=== PATIENT | female | born 1935 | race Caucasian/White ===

== ENCOUNTER 2020-04-23 22:04 | Inpatient (IN) | payer MEDICARE, BC ==
[~2020-04-23] VITALS: Ht 162.6 cm; Wt 65.9 kg
[~2020-04-23 22:04] MED LIST: AMLO2.5T5 PO; ASPI-1053 PO; CALC-1051 PO; DOCU-148 PO; EXEM25TA5 PO; LOSA50TA64 PO; MULT-1085 PO; POTA25TA8 PO
--- NOTE | 2020-04-23 22:33 | NUR ---
LABS DRAWN, BLOOD CULTURES 91ST SET ) DRAWN, PIV PLACED. PT DOES HAVE PORT A CATH TO RIGHT CHEST (REPORTS IT WAS ACCESSED LAST TIME SHE WAS HERE). NO BP/LAB DRAW TO LEFT ARM.
[2020-04-23] MEDS ORDERED: ondansetron/PF 4mg/2ml inj IV ONE (22:40)
[2020-04-23] MEDS ORDERED: morphine 10mg/ml inj. IV ONE (22:40)
[2020-04-23 22:43] LABS: BASOPHILS % (AUTO) 0.7 % (0-1); EOSINOPHILS % (AUTO) 0.1 % (0-6); HEMATOCRIT 40.2 % (35.0-45.0); HEMOGLOBIN 13.4 g/dl (12.0-16.0); LYMPHOCYTES # (AUTO) 0.6 X10'3 (1.1-4.8); LYMPHOCYTES % (AUTO) 10.7 % (21-51); MEAN CORPUSCULAR HEMOGLOBIN 30.6 PG (27.0-31.0); MEAN CORPUSCULAR HGB CONC 33.3 g/dL (33.0-36.5); MEAN CORPUSCULAR VOLUME 91.9 FL (78-98); MEAN PLATELET VOLUME 10.2 FL (7.4-10.4); MONOCYTES % (AUTO) 18.9 % (2-12); NEUTROPHILS # (AUTO) 3.7 X10'3 (1.8-7.7); NEUTROPHILS % (AUTO) 69.6 % (42-75); PLATELET COUNT 185 X10'3 (140-440); RED BLOOD COUNT 4.37 X10'6 (4.20-5.60); RED CELL DISTRIBUTION WIDTH 14.6 % (11.5-14.5); WHITE BLOOD COUNT 5.4 X10'3 (4.5-11.0)
[2020-04-23 22:55] LABS: ALANINE AMINOTRANSFERASE 29 U/L (12-78); ALBUMIN 3.3 G/DL (3.4-5.0); ALKALINE PHOSPHATASE 104 IU/L (46-116); ANION GAP 10 (8-16); ASPARTATE AMINO TRANSFERASE 34 U/L (10-37); BILIRUBIN,TOTAL 0.6 MG/DL (0.1-1.0); BLOOD UREA NITROGEN 17 MG/DL (7-18); BUN/CREATININE RATIO 17.7 (6.6-38.0); CALCIUM 8.3 MG/DL (8.5-10.1); CHLORIDE 98 MMOL/L (99-107); CREATININE 0.96 MG/DL (0.40-0.90); GLUCOSE 154 MG/DL (70-104); LIPASE 66 U/L (73-393); POTASSIUM 3.2 MMOL/L (3.5-5.1); SODIUM 136 MMOL/L (135-145); TOTAL PROTEIN 6.6 G/DL (6.4-8.2); eGFR 55 ML/MIN
[2020-04-23 23:38] LABS: TOTAL CELLS COUNTED 100
[2020-04-23 23:39] LABS: LARGE PLATELETS FEW; PLATELET ESTIMATE NORMAL
--- NOTE | 2020-04-23 23:39 | NUR ---
dr. worley talking with pt about results of CT and that she has SBO. Pt given option to have an NG placed and requests to wait until her symptoms are severe and Dr. Worley ok with this plan. Pt also does not want a straight cath. ok with waiting until Pt can void natrually to collect urine. Med Rec completed. Pt just given MSIV and zofran. bp 169/103, otherwise vss.
[2020-04-23 23:43] LABS: ELLIPTOCYTES FEW; POLYCHROMASIA FEW
[2020-04-23 23:45] LABS: POIKILOCYTOSIS 1+
[2020-04-23] MEDS ORDERED: FAMO20TA8 PO (23:55)
[2020-04-23] MEDS ORDERED: MAGN400T28 PO (23:55)
[2020-04-23] MEDS ORDERED: MORP100S12 PO (23:56)
[2020-04-24] MEDS ORDERED: mag hydrox/Alum hydrox/simeth 30ml oral suspension PO PRN (01:15)
[2020-04-24] MEDS ORDERED: magnesium hydroxide 30ml (MOM) UD suspension PO PRN (01:15)
[2020-04-24] MEDS ORDERED: ondansetron/PF 4mg/2ml inj IV PRN (01:15)
[2020-04-24] MEDS ORDERED: acetaminophen 325mg tablet PO PRN (01:15)
[2020-04-24] MEDS: normal saline 1000ml 1,000 ML IV SCH ×3 (01:52→21:15)
--- NOTE | 2020-04-24 01:53 | NUR ---
pt updated she wilol be admit hold in er through the night. Pt given blanket, anti nausea meds, denies need for pain meds,current vss. Will get a hospital bed for her.
--- NOTE | 2020-04-24 03:58 | NUR ---
pt sleeping, lying on her back with blankets covering to her shoulders. Awaiting ipa.
--- NOTE | 2020-04-24 04:34 | NUR ---
placed on hospital bed
--- NOTE | 2020-04-24 04:47 | NUR ---
pt sat up at edge of bed and was nauseaus then had emesis 100 cc's watery dark green. Up to BSC independantly with sba. Pt voiding 200 cc's dark yellow urine, sample collected for UA. Dr. Gary updated, verbal received to increased zofran to 8 mg q6hr. 1st dose ok now. Pt did have dose of 4 mg 3.5 hr ago.
[2020-04-24 04:59] LABS: CLARITY,URINE CLEAR (Clear); COLOR,URINE YELLOW (Yellow); GLUCOSE, URINE NEGATIVE (Neg); KETONES,URINE 15 mg/dl (Neg); LEUKOCYTE ESTERASE ,URINE NEGATIVE (Neg); NITRITES, URINE NEGATIVE (Neg); OCCULT BLOOD,URINE TRACE-INTACT (Neg); PH,URINE 5.5 (4.8-8.0); PROTEIN,URINE TRACE mg/dl (Neg); UROBILINOGEN,URINE 0.2 E.U/dL (0.2-1.0)
[2020-04-24 05:02] LABS: UA COLLECTION TYPE VOIDED
[2020-04-24 05:22] LABS: BACTERIA,URINE FEW /HPF (Neg); RBC,URINE 0-2 /HPF (0-2); SQUAMOUS EPITHELIAL CELL,UR FEW /LPF (FEW); WBC,URINE 0-4 /HPF (0-4)
[2020-04-24 05:23] LABS: HYALINE CASTS 0-3 /LPF (NEGATIVE)
--- NOTE | 2020-04-24 07:00 | NUR ---
PT RESTING WITH EYES CLOSED, EFFORTLESS RESPIRATIONS OBSERVED.
[2020-04-24] MEDS: aspirin 81mg tab.chew PO SCH (08:39)
[2020-04-24] MEDS: losartan 50mg tablet PO SCH (08:39)
[2020-04-24] MEDS: famotidine 20mg tablet PO SCH (08:39)
[2020-04-24] MEDS: amLODIPine 2.5mg tablet PO SCH (08:39)
[2020-04-24] MEDS: heparin, porcine 5000 units/ml vial SQ SCH ×2 (08:41→20:13)
--- NOTE | 2020-04-24 08:56 | NUR ---
PTS DAUGHTER TORIBIO CALLED CHECKING ON PT. DAUGHTER WAS INQUIRING IF PT COULD BE SET UP WITH HOSPICE WHEN DC DAUGHTER CONCERNED PT HAVING HELP/SERVICES AT HOME. PT LEFT CELL NUMBER .
--- NOTE | 2020-04-24 09:15 | NUR ---
breaking primary RN, pt is supine in bed, eyes closed, appears to be alseep, regular breathing observed
[2020-04-24] MEDS: morphine 2 MG/ML inj. syringe IV PRN ×4 (10:47→23:48)
--- NOTE | 2020-04-24 12:04 | NUR ---
Pt resting comfortably in bed, no distress noted, no needs at this time
[2020-04-24] MEDS: ondansetron/PF 4mg/2ml inj IV PRN (15:53)
--- NOTE | 2020-04-24 18:50 | NUR ---
Called ER and got report from Ashleigh BARBOZA . Patient to follow shortly.
[2020-04-24 19:00] VITALS: BP 147/101
--- NOTE | 2020-04-24 19:00 | NUR ---
Patient arrived to floor at 1900. Transferred over to surgical bed, and Vs initiated. Patient in no distress at this time.
[2020-04-24] MEDS ORDERED: magnesium 4gm in 100ml NS 100 ML IV PRN (20:00)
[2020-04-24 20:05] VITALS: BP 147/101
[2020-04-24] MEDS: K and/or MAG REPLACEMENT MC SCH (23:38)
[2020-04-24] MEDS: potassium Cl 40MEQ/1/2NS 520ml 520 ML IV PRN (23:40)
[2020-04-25] VITALS: BP 151/53
--- NOTE | 2020-04-25 02:27 | NUR ---
Pt. c/o pain from potassium infusion. New order obtained for permission to use patients port a cath.
[2020-04-25] MEDS: morphine 2 MG/ML inj. syringe IV PRN ×4 (02:42→22:49)
[2020-04-25] MEDS: ondansetron/PF 4mg/2ml inj IV PRN ×2 (04:34→18:55)
--- NOTE | 2020-04-25 06:43 | NUR ---
Problems reprioritized. Patient report given, questions answered & plan of care reviewed with Vandana BARBOZA.
[2020-04-25] MEDS: normal saline 1000ml 1,000 ML IV SCH ×2 (07:15→17:15)
[2020-04-25 08:00] VITALS: BP 134/65
[2020-04-25] MEDS: K and/or MAG REPLACEMENT MC SCH ×2 (08:00→20:00)
[2020-04-25] MEDS: aspirin 81mg tab.chew PO SCH (10:18)
[2020-04-25] MEDS: famotidine 20mg tablet PO SCH (10:18)
[2020-04-25] MEDS: amLODIPine 2.5mg tablet PO SCH (10:19)
[2020-04-25] MEDS: losartan 50mg tablet PO SCH (10:25)
[2020-04-25] MEDS: heparin, porcine 5000 units/ml vial SQ SCH ×2 (10:29→20:47)
[2020-04-25 11:00] VITALS: BP 150/60
--- NOTE | 2020-04-25 11:26 | NUR ---
Malnutrition consult: Pt reports 34 or more lb wt loss with decreased appetite per malnutrition risk screen with RN. Pt with scaled wt hx of 68.1 kg from May-February 2020, current documented scaled wt is 65.91 kg. This is non-significant wt loss of 3% (-2.2 kg) in two months. Pt on a clear liquid diet documented with 0% PO intake first meal. Pt admit with recurrent SBO with abdominal pain and N/V on presentation, no emesis since receiving Zofran per physical assessment. Pt with no documented significant decrease in muscle strength or edema. Current BMI is appropriate. Pt currently lacks a minimum of two criteria for malnutrition, though is a high risk for becoming malnourished given h/o metastatic ovarian cancer and a neuroendocrine tumor. Patient's daughter agreeable for hospice care per notes. Will continue to follow closely and monitor qualifying criteria for malnutrition and need for nutrition intervention. Addendum: 04/25/20 at [address] Amended: Links added.
[2020-04-25] MEDS ORDERED: bisacodyl 5mg tablet.DR PO PRN (11:30)
[2020-04-25 11:57] LABS: BASOPHILS % (AUTO) 0.6 % (0-1); EOSINOPHILS % (AUTO) 0.1 % (0-6); HEMATOCRIT 38.1 % (35.0-45.0); HEMOGLOBIN 12.7 g/dl (12.0-16.0); LYMPHOCYTES # (AUTO) 0.9 X10'3 (1.1-4.8); LYMPHOCYTES % (AUTO) 15.1 % (21-51); MEAN CORPUSCULAR HEMOGLOBIN 30.8 PG (27.0-31.0); MEAN CORPUSCULAR HGB CONC 33.3 g/dL (33.0-36.5); MEAN CORPUSCULAR VOLUME 92.6 FL (78-98); MEAN PLATELET VOLUME 10.7 FL (7.4-10.4); MONOCYTES # (AUTO) 0.8 X10'3 (0-0.9); MONOCYTES % (AUTO) 13.1 % (2-12); NEUTROPHILS # (AUTO) 4.1 X10'3 (1.8-7.7); NEUTROPHILS % (AUTO) 71.1 % (42-75); PLATELET COUNT 173 X10'3 (140-440); RED BLOOD COUNT 4.12 X10'6 (4.20-5.60); RED CELL DISTRIBUTION WIDTH 14.9 % (11.5-14.5); WHITE BLOOD COUNT 5.8 X10'3 (4.5-11.0)
[2020-04-25 12:27] LABS: ALANINE AMINOTRANSFERASE 16 U/L (12-78); ALBUMIN 2.4 G/DL (3.4-5.0); ALBUMIN/GLOBULIN RATIO 0.8 (1.1-1.5); ALKALINE PHOSPHATASE 76 IU/L (46-116); ANION GAP -2 (8-16); ASPARTATE AMINO TRANSFERASE 24 U/L (10-37); BILIRUBIN,TOTAL 0.4 MG/DL (0.1-1.0); BLOOD UREA NITROGEN 18 MG/DL (7-18); BUN/CREATININE RATIO 21.7 (6.6-38.0); CALCIUM 7.9 MG/DL (8.5-10.1); CHLORIDE 105 MMOL/L (99-107); CREATININE 0.83 MG/DL (0.40-0.90); GLUCOSE 98 MG/DL (70-104); SODIUM 132 MMOL/L (135-145); TOTAL CARBON DIOXIDE 28.7 MMOL/L (24-32); TOTAL PROTEIN 5.4 G/DL (6.4-8.2); eGFR 65 ML/MIN
[2020-04-25 12:29] LABS: LARGE PLATELETS FEW; PLATELET ESTIMATE NORMAL
[2020-04-25 12:30] LABS: BURR CELLS FEW; ELLIPTOCYTES FEW; SCHISTOCYTES FEW
--- NOTE | 2020-04-25 13:52 | NUR ---
PAGER ID: [phone] MESSAGE: [place] [id number] Did you want miralax today or at HS? Order says HS but is showing up for now. Vandana [id number]
--- NOTE | 2020-04-25 13:54 | NUR ---
called. Ok to give one miralax does now and then continue with miralax at bedtime starting tomorrow.
[2020-04-25] MEDS: polyethylene glycol 3350 17gm powd pack PO SCH ×2 (14:01→20:45)
--- NOTE | 2020-04-25 18:38 | NUR ---
Gave report to Lara Ashford RN.
--- NOTE | 2020-04-25 18:40 | NUR ---
Patient in room [facility]. I have received report from TAMRA Ross and had the opportunity to ask questions and assume patient care.
[2020-04-25 20:00] VITALS: BP 159/83
[2020-04-25] MEDS: docusate sod 100mg capsule PO SCH (20:47)
[2020-04-26] VITALS: BP 143/89
[2020-04-26] MEDS: normal saline 1000ml 1,000 ML IV SCH ×4 (03:15→23:15)
--- NOTE | 2020-04-26 06:34 | NUR ---
Problems reprioritized. Patient report given, questions answered & plan of care reviewed with TAMRA Sibley.
--- NOTE | 2020-04-26 06:43 | NUR ---
Patient in room [facility]. I have received report from TAMRA Bermudez and had the opportunity to ask questions and assume patient care.
[2020-04-26] MEDS: losartan 50mg tablet PO SCH (07:43)
[2020-04-26] MEDS: docusate sod 100mg capsule PO SCH ×2 (07:44→19:29)
[2020-04-26] MEDS: amLODIPine 2.5mg tablet PO SCH (07:44)
[2020-04-26] MEDS: famotidine 20mg tablet PO SCH (07:44)
[2020-04-26] MEDS: heparin, porcine 5000 units/ml vial SQ SCH ×2 (07:45→19:29)
[2020-04-26] MEDS: morphine 2 MG/ML inj. syringe IV PRN ×3 (07:55→22:54)
[2020-04-26] MEDS: ondansetron/PF 4mg/2ml inj IV PRN ×2 (07:55→18:53)
[2020-04-26 08:00] VITALS: BP 177/85
[2020-04-26] MEDS: K and/or MAG REPLACEMENT MC SCH ×2 (08:00→20:00)
[2020-04-26 11:14] LABS: BASOPHILS % (AUTO) 0.3 % (0-1); EOSINOPHILS % (AUTO) 0 % (0-6); HEMATOCRIT 39.3 % (35.0-45.0); HEMOGLOBIN 13.2 g/dl (12.0-16.0); LYMPHOCYTES # (AUTO) 0.4 X10'3 (1.1-4.8); LYMPHOCYTES % (AUTO) 8.2 % (21-51); MEAN CORPUSCULAR HEMOGLOBIN 30.9 PG (27.0-31.0); MEAN CORPUSCULAR HGB CONC 33.7 g/dL (33.0-36.5); MEAN CORPUSCULAR VOLUME 91.7 FL (78-98); MONOCYTES # (AUTO) 0.7 X10'3 (0-0.9); MONOCYTES % (AUTO) 13.5 % (2-12); PLATELET COUNT 178 X10'3 (140-440); RED BLOOD COUNT 4.29 X10'6 (4.20-5.60); WHITE BLOOD COUNT 5.2 X10'3 (4.5-11.0)
[2020-04-26 11:27] LABS: ALANINE AMINOTRANSFERASE 12 U/L (12-78); ALBUMIN 2.3 G/DL (3.4-5.0); ALBUMIN/GLOBULIN RATIO 0.7 (1.1-1.5); ALKALINE PHOSPHATASE 74 IU/L (46-116); ANION GAP 8 (8-16); BILIRUBIN,TOTAL 0.6 MG/DL (0.1-1.0); BLOOD UREA NITROGEN 11 MG/DL (7-18); BUN/CREATININE RATIO 17.7 (6.6-38.0); CALCIUM 7.4 MG/DL (8.5-10.1); CHLORIDE 100 MMOL/L (99-107); CREATININE 0.62 MG/DL (0.40-0.90); GLUCOSE 104 MG/DL (70-104); SODIUM 135 MMOL/L (135-145); TOTAL CARBON DIOXIDE 27.4 MMOL/L (24-32); TOTAL PROTEIN 5.6 G/DL (6.4-8.2); eGFR > 90 ML/MIN
[2020-04-26 11:28] LABS: ASPARTATE AMINO TRANSFERASE 30 U/L (10-37); POTASSIUM 3.4 MMOL/L (3.5-5.1)
[2020-04-26 13:12] VITALS: BP 174/82
[2020-04-26] MEDS ORDERED: PEG 3350/Na sulf,bicarb,Cl/KCl oral sol 4 liter bottle PO ONE (14:00)
[2020-04-26] MEDS: potassium Cl 40MEQ/1/2NS 520ml 520 ML IV PRN (14:37)
[2020-04-26 18:00] VITALS: BP 194/85
--- NOTE | 2020-04-26 18:21 | NUR ---
Patient in room [facility]. I have received report from TAMRA Sibley and had the opportunity to ask questions and assume patient care.
--- NOTE | 2020-04-26 18:45 | NUR ---
Problems reprioritized. Patient report given, questions answered & plan of care reviewed with TAMRA Bermudez.
[2020-04-26 19:25] VITALS: BP 165/76
[2020-04-26] MEDS: polyethylene glycol 3350 17gm powd pack PO SCH ×2 (20:13)
--- NOTE | 2020-04-26 20:13 | NUR ---
Pt refused miralax; receiving golitely.
[2020-04-27] VITALS: BP 178/102
[2020-04-27 01:14] VITALS: BP 150/82
[2020-04-27] MEDS: normal saline 1000ml 1,000 ML IV SCH ×3 (04:07→17:03)
[2020-04-27 06:17] LABS: BASOPHILS % (AUTO) 0.2 % (0-1); EOSINOPHILS % (AUTO) 0 % (0-6); HEMATOCRIT 41.3 % (35.0-45.0); LYMPHOCYTES # (AUTO) 0.5 X10'3 (1.1-4.8); MEAN CORPUSCULAR HEMOGLOBIN 30.7 PG (27.0-31.0); MEAN CORPUSCULAR HGB CONC 33.8 g/dL (33.0-36.5); MEAN CORPUSCULAR VOLUME 90.9 FL (78-98); MEAN PLATELET VOLUME 10.4 FL (7.4-10.4); MONOCYTES % (AUTO) 11.6 % (2-12); NEUTROPHILS # (AUTO) 7.5 X10'3 (1.8-7.7); NEUTROPHILS % (AUTO) 83.2 % (42-75); PLATELET COUNT 178 X10'3 (140-440); RED BLOOD COUNT 4.55 X10'6 (4.20-5.60); RED CELL DISTRIBUTION WIDTH 14.4 % (11.5-14.5); WHITE BLOOD COUNT 9.1 X10'3 (4.5-11.0)
--- NOTE | 2020-04-27 06:17 | NUR ---
Problems reprioritized. Patient report given, questions answered & plan of care reviewed with TAMRA Sibley.
--- NOTE | 2020-04-27 06:33 | NUR ---
Patient in room [facility]. I have received report from TAMRA Bermudez and had the opportunity to ask questions and assume patient care.
[2020-04-27 06:41] LABS: ALANINE AMINOTRANSFERASE 14 U/L (12-78); ALBUMIN 2.5 G/DL (3.4-5.0); ALBUMIN/GLOBULIN RATIO 0.8 (1.1-1.5); ALKALINE PHOSPHATASE 79 IU/L (46-116); ANION GAP 11 (8-16); ASPARTATE AMINO TRANSFERASE 21 U/L (10-37); BILIRUBIN,TOTAL 0.8 MG/DL (0.1-1.0); BLOOD UREA NITROGEN 13 MG/DL (7-18); BUN/CREATININE RATIO 18.1 (6.6-38.0); CALCIUM 7.9 MG/DL (8.5-10.1); CHLORIDE 100 MMOL/L (99-107); CREATININE 0.72 MG/DL (0.40-0.90); GLUCOSE 127 MG/DL (70-104); POTASSIUM 3.3 MMOL/L (3.5-5.1); SODIUM 136 MMOL/L (135-145); TOTAL CARBON DIOXIDE 24.7 MMOL/L (24-32); TOTAL PROTEIN 5.8 G/DL (6.4-8.2); eGFR 77 ML/MIN
[2020-04-27] MEDS: ondansetron/PF 4mg/2ml inj IV PRN ×2 (07:36→20:19)
[2020-04-27] MEDS: morphine 2 MG/ML inj. syringe IV PRN ×3 (07:36→22:35)
[2020-04-27] MEDS: famotidine 20mg tablet PO SCH (07:45)
[2020-04-27] MEDS: amLODIPine 2.5mg tablet PO SCH (07:45)
[2020-04-27] MEDS: docusate sod 100mg capsule PO SCH ×2 (07:45→20:00)
[2020-04-27] MEDS: losartan 50mg tablet PO SCH (07:45)
[2020-04-27] MEDS: heparin, porcine 5000 units/ml vial SQ SCH ×2 (07:53→20:16)
[2020-04-27] MEDS: K and/or MAG REPLACEMENT MC SCH ×2 (08:00→20:00)
--- NOTE | 2020-04-27 13:54 | NUR ---
Initial: Pt admit with recurrent SBO with abdominal pain and N/V on presentation with h/o metastatic ovarian cancer and a neuroendocrine tumor. LBM 04/22, pt receiving routine Colace and routine Miralax held, pt refusing per RN notes. Pt received Golytely 04/26 and first dose of PRN MoM 04/27. Per MD note pt passing flatus this morning though no bowel movement. Pt on a clear liquid diet with fluctuating PO intake 0% with refusals, 25-50% and 75%, though now with an NG tube in place d/t multiple episode of vomiting per MD note. Limited nutrition interventions at this time given current diet order. Pt DNR at this time, patient's daughter agreeable for hospice care per CM notes. If unable to advance PO diet, emesis resolves, and pt does not go on hospice pt would benefit from TF to meet estimated nutrient needs since NG tube already in place. Will continue to follow closely and make recommendations as appropriate in line with patient's plan of care. Recommendations: 1) Advance to regular diet as medically indicated 2) IF TF, continuous Jevity 1.2 with goal rate of 60 mL/hr with additional 90 mL water flush Q4H; prealbumin q Thursday/; daily weights 3) Bowel care per rx 4) Scaled weights per rx Addendum: 04/27/20 at [address] Amended: Links added.
[2020-04-27] MEDS: potassium Cl 40MEQ/1/2NS 520ml 520 ML IV PRN (17:50)
[2020-04-27 18:00] VITALS: BP 147/85
--- NOTE | 2020-04-27 18:31 | NUR ---
Patient in room [facility]. I have received report from Tomeka BARBOZA and had the opportunity to ask questions and assume patient care.
--- NOTE | 2020-04-27 18:35 | NUR ---
Problems reprioritized. Patient report given, questions answered & plan of care reviewed with TAMRA Sanchez.
--- NOTE | 2020-04-27 18:50 | NUR ---
pt c/o of nausea and agreed to have NG turned back on to suction. will continue to monitor.
[2020-04-27] MEDS: polyethylene glycol 3350 17gm powd pack PO SCH ×2 (20:16→20:59)
--- NOTE | 2020-04-27 22:30 | NUR ---
mirlax given as ordered. suction turned off. pt at 2230 c/o nausea and the suction was connected back to NGT. will continue to monitor
[2020-04-28 00:36] VITALS: BP 168/89
[2020-04-28] MEDS: ondansetron/PF 4mg/2ml inj IV PRN ×2 (04:27→19:54)
[2020-04-28] MEDS: normal saline 1000ml 1,000 ML IV SCH ×2 (05:38→16:13)
--- NOTE | 2020-04-28 06:24 | NUR ---
Problems reprioritized. Patient report given, questions answered & plan of care reviewed with Leonora BARBOZA.
--- NOTE | 2020-04-28 06:29 | NUR ---
Patient in room [facility]. I have received report from TAMRA Sanchez and had the opportunity to ask questions and assume patient care.
[2020-04-28 07:00] VITALS: BP 153/60
[2020-04-28] MEDS: famotidine 20mg tablet PO SCH (08:00)
[2020-04-28] MEDS: K and/or MAG REPLACEMENT MC SCH ×2 (08:00→20:00)
[2020-04-28] MEDS: losartan 50mg tablet PO SCH (08:00)
[2020-04-28] MEDS: docusate sod 100mg capsule PO SCH ×2 (08:00→20:00)
[2020-04-28] MEDS: amLODIPine 2.5mg tablet PO SCH (08:00)
[2020-04-28] MEDS: heparin, porcine 5000 units/ml vial SQ SCH ×2 (09:09→20:01)
[2020-04-28 11:00] VITALS: BP 155/84
[2020-04-28] MEDS ORDERED: magnesium 2GM in 50ml NS 50 ML IV PRN (13:25)
[2020-04-28] MEDS ORDERED: magnesium 4gm in 100ml NS 100 ML IV PRN (13:25)
[2020-04-28] MEDS ORDERED: potassium Cl 20 mEq SR tablet PO PRN ×2 (13:25)
[2020-04-28] MEDS ORDERED: magnesium Cl slow-release 64mg tablet PO PRN (13:25)
[2020-04-28] MEDS: potassium Cl 40MEQ/1/2NS 520ml 520 ML IV PRN (16:13)
[2020-04-28 18:30] VITALS: BP 164/83
--- NOTE | 2020-04-28 18:51 | NUR ---
Problems reprioritized. Patient report given, questions answered & plan of care reviewed with TAMRA Montiel.
--- NOTE | 2020-04-28 18:52 | NUR ---
Patient in room [facility]. I have received report from JULIETA BARBOZA and had the opportunity to ask questions and assume patient care.
[2020-04-28] MEDS: polyethylene glycol 3350 17gm powd pack PO SCH ×2 (20:01→20:02)
[2020-04-29] VITALS: BP 130/77
[2020-04-29] MEDS: normal saline 1000ml 1,000 ML IV SCH ×3 (03:17→12:32)
[2020-04-29 06:04] LABS: ALANINE AMINOTRANSFERASE 14 U/L (12-78); ALBUMIN 2.2 G/DL (3.4-5.0); ALBUMIN/GLOBULIN RATIO 0.7 (1.1-1.5); ALKALINE PHOSPHATASE 81 IU/L (46-116); ANION GAP 8 (8-16); ASPARTATE AMINO TRANSFERASE 28 U/L (10-37); BILIRUBIN,TOTAL 0.7 MG/DL (0.1-1.0); BLOOD UREA NITROGEN 19 MG/DL (7-18); CALCIUM 7.3 MG/DL (8.5-10.1); CHLORIDE 102 MMOL/L (99-107); CREATININE 0.73 MG/DL (0.40-0.90); GLUCOSE 142 MG/DL (70-104); SODIUM 138 MMOL/L (135-145); TOTAL CARBON DIOXIDE 28.3 MMOL/L (24-32); TOTAL PROTEIN 5.2 G/DL (6.4-8.2); eGFR 75 ML/MIN
[2020-04-29 06:09] LABS: POTASSIUM 2.8 MMOL/L (3.5-5.1)
--- NOTE | 2020-04-29 06:24 | NUR ---
PAGED DR. APODACA AND WAS INFORMED OF CRITICAL POTASSIUM 2.8 NO NEW ORDERS MADE. PATIENT ALREADY ON REPLACEMENT PROTOCOL ORDERS.
--- NOTE | 2020-04-29 06:25 | NUR ---
Problems reprioritized. Patient report given, questions answered & plan of care reviewed with JULIETA BARBOZA.
--- NOTE | 2020-04-29 06:26 | NUR ---
Patient in room [facility]. I have received report from TAMRA Montiel and had the opportunity to ask questions and assume patient care.
[2020-04-29 06:32] LABS: BASOPHILS % (AUTO) 0.3 % (0-1); EOSINOPHILS % (AUTO) 0.1 % (0-6); HEMATOCRIT 35.8 % (35.0-45.0); LYMPHOCYTES # (AUTO) 0.5 X10'3 (1.1-4.8); LYMPHOCYTES % (AUTO) 7.3 % (21-51); MEAN CORPUSCULAR HEMOGLOBIN 30.5 PG (27.0-31.0); MEAN CORPUSCULAR HGB CONC 33.6 g/dL (33.0-36.5); MEAN CORPUSCULAR VOLUME 90.9 FL (78-98); MEAN PLATELET VOLUME 10.7 FL (7.4-10.4); MONOCYTES # (AUTO) 0.5 X10'3 (0-0.9); NEUTROPHILS # (AUTO) 6.4 X10'3 (1.8-7.7); NEUTROPHILS % (AUTO) 85.3 % (42-75); PLATELET COUNT 164 X10'3 (140-440); RED BLOOD COUNT 3.93 X10'6 (4.20-5.60); WHITE BLOOD COUNT 7.5 X10'3 (4.5-11.0)
[2020-04-29 07:00] VITALS: BP 155/75
[2020-04-29 07:41] LABS: LARGE PLATELETS FEW; PLATELET ESTIMATE NORMAL
[2020-04-29 07:42] LABS: POIKILOCYTOSIS 1+
[2020-04-29] MEDS: famotidine 20mg tablet PO SCH (08:00)
[2020-04-29] MEDS: losartan 50mg tablet PO SCH (08:00)
[2020-04-29] MEDS: K and/or MAG REPLACEMENT MC SCH ×2 (08:00→20:00)
[2020-04-29] MEDS: docusate sod 100mg capsule PO SCH ×2 (08:00→20:00)
[2020-04-29] MEDS: amLODIPine 2.5mg tablet PO SCH (08:00)
[2020-04-29] MEDS: potassium Cl 40MEQ/1/2NS 520ml 520 ML IV PRN ×3 (08:30→14:55)
[2020-04-29] MEDS: heparin, porcine 5000 units/ml vial SQ SCH ×2 (08:35→20:42)
[2020-04-29 10:30] VITALS: BP 155/78
[2020-04-29] MEDS: ondansetron/PF 4mg/2ml inj IV PRN ×2 (10:52→18:06)
--- NOTE | 2020-04-29 13:00 | NUR ---
Punctured IV bag noted during administration of second bag of IV potassium. Pharmacy notified and third bag of potassium requested to be made and sent.
--- NOTE | 2020-04-29 13:09 | NUR ---
NG DC'd at [address] Mattson's order. Pt tolerated well. Will continue to monitor.
--- NOTE | 2020-04-29 15:21 | NUR ---
Problems reprioritized. Patient report given, questions answered & plan of care reviewed with TAMRA Murillo.
--- NOTE | 2020-04-29 15:25 | NUR ---
Patient in room [facility]. I have received report from TAMRA Lea and had the opportunity to ask questions and assume patient care.
--- NOTE | 2020-04-29 18:30 | NUR ---
Problems reprioritized. Patient report given, questions answered & plan of care reviewed with TAMRA Nunn.
[2020-04-29 19:00] VITALS: BP 154/72
[2020-04-29] MEDS: polyethylene glycol 3350 17gm powd pack PO SCH (20:43)
[2020-04-30] VITALS: BP 145/84
[2020-04-30] MEDS: ondansetron/PF 4mg/2ml inj IV PRN ×2 (00:42→07:19)
[2020-04-30] MEDS: normal saline 1000ml 1,000 ML IV SCH (02:30)
[2020-04-30] MEDS: potassium Cl 40MEQ/1/2NS 520ml 520 ML IV PRN ×2 (02:40→12:07)
--- NOTE | 2020-04-30 06:20 | NUR ---
Patient in room [facility]. I have received report from Edouard BARBOZA and had the opportunity to ask questions and assume patient care.
[2020-04-30 07:00] VITALS: BP 145/81
--- NOTE | 2020-04-30 07:00 | NUR ---
Problems reprioritized. Patient report given, questions answered & plan of care reviewed with CYRIL. Addendum: 04/30/20 at 0701 by Duke Benoit RN Amended: Links added.
[2020-04-30] MEDS: amLODIPine 2.5mg tablet PO SCH (08:00)
[2020-04-30 09:12] LABS: BASOPHILS % (AUTO) 0.2 % (0-1); EOSINOPHILS % (AUTO) 0.1 % (0-6); HEMATOCRIT 34.7 % (35.0-45.0); HEMOGLOBIN 11.7 g/dl (12.0-16.0); LYMPHOCYTES # (AUTO) 0.5 X10'3 (1.1-4.8); LYMPHOCYTES % (AUTO) 6.4 % (21-51); MEAN CORPUSCULAR HEMOGLOBIN 30.7 PG (27.0-31.0); MEAN CORPUSCULAR HGB CONC 33.7 g/dL (33.0-36.5); MEAN PLATELET VOLUME 9.6 FL (7.4-10.4); MONOCYTES # (AUTO) 0.8 X10'3 (0-0.9); MONOCYTES % (AUTO) 10.3 % (2-12); NEUTROPHILS # (AUTO) 6.2 X10'3 (1.8-7.7); PLATELET COUNT 183 X10'3 (140-440); RED BLOOD COUNT 3.82 X10'6 (4.20-5.60); RED CELL DISTRIBUTION WIDTH 14.3 % (11.5-14.5); WHITE BLOOD COUNT 7.5 X10'3 (4.5-11.0)
[2020-04-30 09:23] LABS: ALANINE AMINOTRANSFERASE 10 U/L (12-78); ALBUMIN 2.2 G/DL (3.4-5.0); ALBUMIN/GLOBULIN RATIO 0.8 (1.1-1.5); ALKALINE PHOSPHATASE 69 IU/L (46-116); ANION GAP 8 (8-16); ASPARTATE AMINO TRANSFERASE 35 U/L (10-37); BILIRUBIN,TOTAL 0.5 MG/DL (0.1-1.0); BLOOD UREA NITROGEN 16 MG/DL (7-18); BUN/CREATININE RATIO 25.8 (6.6-38.0); CALCIUM 7.3 MG/DL (8.5-10.1); CHLORIDE 104 MMOL/L (99-107); CREATININE 0.62 MG/DL (0.40-0.90); GLUCOSE 118 MG/DL (70-104); POTASSIUM 3.2 MMOL/L (3.5-5.1); SODIUM 139 MMOL/L (135-145); TOTAL CARBON DIOXIDE 26.7 MMOL/L (24-32); eGFR > 90 ML/MIN
[2020-04-30] MEDS: famotidine 20mg tablet PO SCH (10:15)
[2020-04-30] MEDS: docusate sod 100mg capsule PO SCH (10:15)
[2020-04-30] MEDS: losartan 50mg tablet PO SCH (10:22)
[2020-04-30] MEDS: heparin, porcine 5000 units/ml vial SQ SCH (10:35)
[2020-04-30] MEDS ORDERED: LORazepam 2 mg/ml vial IV ONE (10:35)
[2020-04-30 11:00] VITALS: BP 107/62
[2020-04-30] MEDS: proCHLORperazine 10 MG/2 ml inj IV PRN ×2 (12:08→23:10)
--- NOTE | 2020-04-30 14:45 | NUR ---
F/u 04/30: Noted pt has been made DNR w/ comfort care. LBM 04/29. Will continue to follow. Recommendations: 1) Bowel care per rx Addendum: 04/30/20 at [address] Amended: Links added.
--- NOTE | 2020-04-30 18:28 | NUR ---
Problems reprioritized. Patient report given, questions answered & plan of care reviewed with Megan BARBOZA.
--- NOTE | 2020-04-30 18:29 | NUR ---
I have received report from Savannah BARBOZA and had the opportunity to ask questions and assume patient care.
[2020-04-30 20:00] VITALS: BP 128/83
[2020-05-01] MEDS: normal saline 1000ml 1,000 ML IV SCH (04:46)
--- NOTE | 2020-05-01 06:39 | NUR ---
Problems reprioritized. Patient report given, questions answered & plan of care reviewed with Rebel RN.
[2020-05-01 07:00] VITALS: BP 145/67
[2020-05-01] MEDS: proCHLORperazine 10 MG/2 ml inj IV PRN ×2 (07:46→23:12)
--- NOTE | 2020-05-01 12:15 | NUR ---
Sleeping comfortably at this time, no signs of pain
--- NOTE | 2020-05-01 18:26 | NUR ---
Problems reprioritized. Patient report given, questions answered & plan of care reviewed with Megan BARBOZA.
[2020-05-01 19:00] VITALS: BP 121/60
--- NOTE | 2020-05-01 21:12 | NUR ---
I have received report from Azra BARBOZA and had the opportunity to ask questions and assume patient care.
[2020-05-02] MEDS: normal saline 1000ml 1,000 ML IV SCH (02:45)
[2020-05-02] MEDS: proCHLORperazine 10 MG/2 ml inj IV PRN (05:15)
[2020-05-02 07:00] VITALS: BP 138/69
[2020-05-02 11:00] VITALS: BP 134/55
--- NOTE | 2020-05-02 11:30 | NUR ---
Patient in room [facility]. I have received report from Megan Roy RN, and had the opportunity to ask questions and assume patient care.
--- NOTE | 2020-05-02 11:41 | NUR ---
Problems reprioritized. Patient report given, questions answered & plan of care reviewed with Sydnie BARBOZA.
--- NOTE | 2020-05-02 18:15 | NUR ---
Patient report given, questions answered & plan of care reviewed with Adela Chapman RN .
--- NOTE | 2020-05-02 18:30 | NUR ---
Patient in room [facility]. I have received report from RONAK BARBOZA and had the opportunity to ask questions and assume patient care.
[2020-05-02 20:00] VITALS: BP 157/76
[2020-05-03] MEDS: normal saline 1000ml 1,000 ML IV SCH (04:40)
--- NOTE | 2020-05-03 06:10 | NUR ---
Patient in room [facility]. I have received report from Adela Chapman RN, and had the opportunity to ask questions and assume patient care.
--- NOTE | 2020-05-03 06:12 | NUR ---
Problems reprioritized. Patient report given, questions answered & plan of care reviewed with RONAK BARBOZA.
[2020-05-03 08:00] VITALS: BP 133/63
[2020-05-03] MEDS: normal saline 500ml IV soln 500 ML IV SCH (12:36)
[2020-05-03] MEDS: morphine 10mg/0.5ml (conc. morphine) oral syringe PO PRN (12:49)
--- NOTE | 2020-05-03 18:20 | NUR ---
Patient report given, questions answered & plan of care reviewed with TAMRA Montiel.
--- NOTE | 2020-05-03 18:30 | NUR ---
Patient in room [facility]. I have received report from RONAK BARBOZA and had the opportunity to ask questions and assume patient care.
[2020-05-03 20:00] VITALS: BP 143/69
--- NOTE | 2020-05-04 06:33 | NUR ---
Problems reprioritized. Patient report given, questions answered & plan of care reviewed with UMBERTO BARBOZA.
[2020-05-04 07:00] VITALS: BP 139/62
[2020-05-04] MEDS: normal saline 500ml IV soln 500 ML IV SCH (07:33)
[2020-05-04 11:43] VITALS: BP 157/76
--- NOTE | 2020-05-04 18:19 | NUR ---
Problems reprioritized. Patient report given, questions answered & plan of care reviewed with TAMRA Montiel.
--- NOTE | 2020-05-04 18:30 | NUR ---
Patient in room [facility]. I have received report from UMBERTO BARBOZA and had the opportunity to ask questions and assume patient care.
[2020-05-04 20:00] VITALS: BP 141/81
[2020-05-05] MEDS: normal saline 500ml IV soln 500 ML IV SCH (05:33)
--- NOTE | 2020-05-05 06:25 | NUR ---
Problems reprioritized. Patient report given, questions answered & plan of care reviewed with EVER BARBOZA.
--- NOTE | 2020-05-05 06:45 | NUR ---
Patient in room [facility]. I have received report from CRISTINE COLUNGA RN and had the opportunity to ask questions and assume patient care.
[2020-05-05 07:50] VITALS: BP 142/73
--- NOTE | 2020-05-05 18:27 | NUR ---
Problems reprioritized. Patient report given, questions answered & plan of care reviewed with TAMRA GORE.
--- NOTE | 2020-05-05 18:30 | NUR ---
Patient in room [facility]. I have received report from Deidre BARBOZA and had the opportunity to ask questions and assume patient care.
[2020-05-05 19:00] VITALS: BP 131/68
[2020-05-06] MEDS: normal saline 500ml IV soln 500 ML IV SCH (05:46)
--- NOTE | 2020-05-06 06:20 | NUR ---
Patient in room [facility]. I have received report from TAMRA GORE and had the opportunity to ask questions and assume patient care.
[2020-05-06 07:06] VITALS: BP 126/56
--- NOTE | 2020-05-06 14:49 | NUR ---
F/u 05/06: Pt remains DNR w/ comfort care. LBM 05/04. Will continue to follow. Recommendations: 1) Bowel care per rx Addendum: 05/06/20 at [address] Amended: Links added.
--- NOTE | 2020-05-06 18:21 | NUR ---
Problems reprioritized. Patient report given, questions answered & plan of care reviewed with TAMRA Quinn.
--- NOTE | 2020-05-06 18:31 | NUR ---
Patient in room [facility]. I have received report from Nish BARBOZA and had the opportunity to ask questions and assume patient care. Pt sitting up in the chair with her dinner tray. No signs of distress. Will continue to monitor
[2020-05-06 20:00] VITALS: BP 119/64
[2020-05-07 06:00] VITALS: BP 135/73
--- NOTE | 2020-05-07 06:15 | NUR ---
Problems reprioritized. Patient report given, questions answered & plan of care reviewed with Kathleen BARBOZA.
--- NOTE | 2020-05-07 06:37 | NUR ---
Patient in room [facility]. I have received report from Edouard BARBOZA and had the opportunity to ask questions and assume patient care.
[2020-05-07] MEDS: morphine 10mg/0.5ml (conc. morphine) oral syringe PO PRN (08:27)
[2020-05-07] MEDS: normal saline 500ml IV soln 500 ML IV SCH (08:30)
--- NOTE | 2020-05-07 18:43 | NUR ---
patient sleeping alot of shift medicated with Roxanol x1 for 6/10 pain with effect denied pain after this. Up in chair x1 poor appetite Voided 125mls. Is comfort care. Awaiting arrival of daughter from [place] on . Report given to Ras BARBOZA
--- NOTE | 2020-05-07 18:45 | NUR ---
Patient in room [facility]. I have received report from JESSICA BARBOZA and had the opportunity to ask questions and assume patient care.
[2020-05-07 20:00] VITALS: BP 156/78
[2020-05-08] MEDS: normal saline 500ml IV soln 500 ML IV SCH (04:08)
--- NOTE | 2020-05-08 06:25 | NUR ---
Problems reprioritized. Patient report given, questions answered & plan of care reviewed with JULIETA BARBOZA.
[2020-05-08 07:00] VITALS: BP 120/66
--- NOTE | 2020-05-08 07:07 | NUR ---
Patient in room [facility]. I have received report from Dinesh BARBOZA and had the opportunity to ask questions and assume patient care.
--- NOTE | 2020-05-08 18:29 | NUR ---
Problems reprioritized. Patient report given, questions answered & plan of care reviewed with Freda BARBOZA.
--- NOTE | 2020-05-08 18:30 | NUR ---
Patient in room [facility]. I have received report from Leonora BARBOZA and had the opportunity to ask questions and assume patient care.
[2020-05-08 19:00] VITALS: BP 131/68
[2020-05-09] MEDS: normal saline 500ml IV soln 500 ML IV SCH ×2 (03:07→19:47)
--- NOTE | 2020-05-09 06:37 | NUR ---
Patient in room [facility]. I have received report from TAMRA Barba and had the opportunity to ask questions and assume patient care.
--- NOTE | 2020-05-09 06:40 | NUR ---
Problems reprioritized. Patient report given, questions answered & plan of care reviewed with Leonora BARBOZA.
[2020-05-09 07:00] VITALS: BP 157/63
[2020-05-09] MEDS: LORazepam 2 mg/ml vial IV PRN ×2 (08:40→17:33)
--- NOTE | 2020-05-09 13:40 | NUR ---
Problems reprioritized. Patient report given, questions answered & plan of care reviewed with TAMRA Barone.
--- NOTE | 2020-05-09 14:00 | NUR ---
REPORT GIVEN TO JUDY
--- NOTE | 2020-05-09 14:02 | NUR ---
Pt transferred to room 4014B, with all belongings.
[2020-05-09 14:33] VITALS: BP 132/68
--- NOTE | 2020-05-09 14:49 | NUR ---
Patients daughter Lali notified patient is positive for covid. Patients family Lali and her sister are down in the lobby to see mother. I advised what room patient was in and I don't know if they are allowing visitors but she could call and find out. After getting off the phone with Lali I spoke to the ortho floor and they said they are allowing visitors for the Comfort care patients and provide N95 masks for visitor. I contacted Lali and and notified they of the above information and they would have to get further details from the unit.
[2020-05-09 22:00] VITALS: BP 134/68
[2020-05-10 09:36] VITALS: BP 164/73
[2020-05-10] MEDS: LORazepam 2 mg/ml vial IV PRN (14:30)
--- NOTE | 2020-05-10 18:22 | NUR ---
Problems reprioritized. Patient report given, questions answered & plan of care reviewed with PRUDENCE RN.
[2020-05-10] MEDS: normal saline 500ml IV soln 500 ML IV SCH (18:26)
--- NOTE | 2020-05-10 18:56 | NUR ---
Patient in room [facility] 4014. I have received report from LAUREN BARBOZA and had the opportunity to ask questions and assume patient care.
--- NOTE | 2020-05-10 20:19 | NUR ---
Problems reprioritized. Patient report given, questions answered & plan of care reviewed with SERGEY BARBOZA.
--- NOTE | 2020-05-10 20:19 | NUR ---
Patient in room [facility] 4014. I have received report from TAMRA Sheets and had the opportunity to ask questions and assume patient care.
[2020-05-10 22:00] VITALS: BP 145/68
[2020-05-11] MEDS: LORazepam 2 mg/ml vial IV PRN ×3 (02:19→23:41)
--- NOTE | 2020-05-11 06:25 | NUR ---
Problems reprioritized. Patient report given, questions answered & plan of care reviewed with TAMRA Saul.
--- NOTE | 2020-05-11 10:15 | NUR ---
Assumed care of pt. Pt drowsy but easily arousable. Pt denied any pain or discomfort.
[2020-05-11 10:30] VITALS: BP 130/59
[2020-05-11] MEDS: morphine 10mg/0.5ml (conc. morphine) oral syringe PO PRN (12:48)
[2020-05-11 14:00] VITALS: BP 137/70
[2020-05-11 18:00] VITALS: BP 129/82
[2020-05-11] MEDS: normal saline 500ml IV soln 500 ML IV SCH (19:29)
[2020-05-12] MEDS: LORazepam 2 mg/ml vial IV PRN ×2 (09:30→13:28)
[2020-05-12 09:37] VITALS: BP 142/93
[2020-05-12] MEDS: normal saline 500ml IV soln 500 ML IV SCH (21:08)
[2020-05-13] MEDS: LORazepam 2 mg/ml vial IV PRN ×3 (00:09→16:27)
[2020-05-13 08:00] VITALS: BP 144/72
[2020-05-13] MEDS: morphine 10mg/0.5ml (conc. morphine) oral syringe PO PRN ×2 (11:47→15:56)
[2020-05-13] MEDS ORDERED: scopolamine 1.5mg patch.TD72 TD SCH (12:20)
--- NOTE | 2020-05-13 14:02 | NUR ---
F/u 05/13: Pt remains DNR w/ comfort care. LBM 05/10. Will continue to follow. Recommendations: 1) Bowel care per rx Addendum: 05/13/20 at [address] Amended: Links added.
--- NOTE | 2020-05-13 16:05 | NUR ---
PAGER ID: [phone] MESSAGE: [id number] Ava Thornton Pt needs to have comfort care meds frequency increased ativan is Q4 and roxanol is only .5 Q4 right now. Pt is getting very uncomfortable. #[id number] thank you Shelli (183 character message out of a maximum of 240) Addendum: 05/13/20 at 1611 by Adrian Pacheco RN CORRECTION TO NAME [id number] [place]
[2020-05-13] MEDS: normal saline 500ml IV soln 500 ML IV SCH (21:29)
[2020-05-14] MEDS: morphine 10mg/0.5ml (conc. morphine) oral syringe PO PRN ×7 (00:11→23:02)
[2020-05-14 06:10] VITALS: BP 143/89
[2020-05-14] MEDS: normal saline 500ml IV soln 500 ML IV SCH (08:34)
[2020-05-14] MEDS: LORazepam 2 mg/ml vial IV PRN ×3 (08:41→15:26)
[2020-05-14 10:00] VITALS: BP 156/87
--- NOTE | 2020-05-14 14:00 | NUR ---
I spoke to daughter Lali, she said okay to take patient off of 02 completely. I told her we are keeping her comfortable with medications and she appreciated that very much.
--- NOTE | 2020-05-14 14:30 | NUR ---
I spoke to Lali Ortiz again regarding expiration memorandum, she said the patient will go to [facility] in [place], she said I could sign the paperwork for her. It will be in the chart.
--- NOTE | 2020-05-15 01:15 | NUR ---
patient . see notes.
--- NOTE | 2020-05-15 01:30 | NUR ---
called patient's daughter Lali. ok for patient to transfer to [facility]. belongings will be double bagged and left at front office help for Lali to knot picker cloth. this includes a naif, cell phone, 2 pairs of glasses and patient's clothes. Lali will pick them up later today, 05/15/20. face sheet with Lali's name and number taped to bag. Called [facility] for knot picker cloth - no arrival time verbalized. will await knot picker cloth. Patient cleaned and placed into white bag. arm band, port access, maza intact per req from mortuary.
--- NOTE | 2020-05-15 01:45 | NUR ---
RN IS TO DOCUMENT YES TO ALL APPLICABLE AREAS Pronouncement of : 1. Time Physician Notified: Kathi 2. Date of : 05-15-20 3. Time of : 114 4. DNR/Withdraw life support documented: y 5. Monitor strip has been placed on chart: y 6. Assessment process is of one-minute duration and includes following criteria: a) Patient is unresponsive to all stimuli: y b) Pupils fixed and non-reactive: y c) Auscultation of precordium reveals absence of heart tones: y d) Auscultation of lungs reveals absence of breath sounds: y e) Absence of blood pressure / all vital signs: y f) QRS complexes are not present on monitor / EKG strip: y g) Pacer spikes without capture: n/a 4. Comments:
== END 2020-05-15 02:28 | disposition expired | DRG 843 ==
LOC: ER 22:04 → ED HOLD 04-24 01:12 → SUR 3N 04-24 19:04 → ORTHO 4S 05-09 14:22
PROVIDERS: ADMIT Internal Medicine; ATTEND Family Medicine
DX: C7A.8 Other malignant neuroendocrine tumors (principal); U07.1 COVID-19; J96.01 Acute respiratory failure with hypoxia; K56.609 Unspecified intestinal obstruction, unspecified as to partial versus complete obstruction; N17.9 Acute kidney failure, unspecified; E44.0 Moderate protein-calorie malnutrition; E87.1 Hypo-osmolality and hyponatremia; C56.9 Malignant neoplasm of unspecified ovary; I10 Essential (primary) hypertension; D63.8 Anemia in other chronic diseases classified elsewhere; I25.10 Atherosclerotic heart disease of native coronary artery without angina pectoris; Z51.5 Encounter for palliative care; Z66 Do not resuscitate; E87.6 Hypokalemia; Z95.1 Presence of aortocoronary bypass graft; Z68.24 Body mass index [BMI] 24.0-24.9, adult; Z88.0 Allergy status to penicillin; Z88.2 Allergy status to sulfonamides; Z88.8 Allergy status to other drugs, medicaments and biological substances; Z90.10 Acquired absence of unspecified breast and nipple; Z79.899 Other long term (current) drug therapy
CPT/HCPCS: 36415; 74176; 80053; 81001; 83690; 84132; 85007; 85008; 85025; 87081; 87426; 96374; 96375; 99285; G0378; J0780; J1644; J2060; J2270; J2405; J3480; J7030; J7040